=== PATIENT | female | born 1935 | race Caucasian/White ===

== ENCOUNTER 2020-08-13 11:12 | Emergency (ER) | payer MEDICARE, OTHER ==
[2020-08-13] MEDS ORDERED: BACTROBAN NASAL1 GM TOP (14:01)
== END 2020-08-13 14:30 | disposition home or self-care (01) ==
LOC: FER 11:12
DX: S02.2XXA Fracture of nasal bones, initial encounter for closed fracture (principal); M25.531 Pain in right wrist; I10 Essential (primary) hypertension; F17.200 Nicotine dependence, unspecified, uncomplicated; W01.0XXA Fall on same level from slipping, tripping and stumbling without subsequent striking against object, initial encounter; Y92.009 Unspecified place in unspecified non-institutional (private) residence as the place of occurrence of the external cause
CPT/HCPCS: 70486; 73100